=== PATIENT | male | born 1940 | race Caucasian/White ===

== ENCOUNTER → 2023-10-08 | Day surgery (SDC) | payer MEDICARE ==
[~2023-10-08] MED LIST: ACETAMINOPHEN 1000 MG/100 ML IV ONE; ACULAR5 ML IO; ALEVE220 M1 PO; ALPHAGAN P5 ML IO; ASPIRIN PO; ASPIRIN81 MG PO; ATORVASTATIN CA10 MG PO; BIOFLAVONOIDS PO; DEXAMETHASONE SO5 ML; DEXAMETHASONE SOD PHOS INJ 4 MG/ML SDV ONE; EPHEDRINE SULFATE INJ 50 MG/ML VIAL ONE; FENTANYL CITRATE/PF 100MCG/2 ML INJ ONE; FINASTERIDE5 MG PO; FUROSEMIDE40 MG PO; IOPAMIDOL 610MG/1ML 300 MG/ML VIAL IV ONE; LIDOCAINE HCL 2% LOCAL INJ 5 ML SDV VIAL INJ ONE; OMEGA 3-6-9 CO400 MG PO; ONDANSETRON HCL INJ 2MG/ML 2ML 2 MG/ML VIAL ONE; POTASSIUM CHLO20 ME1 PO; PREDNISOLONE ACE5 ML IO; PROPOFOL IV EMULSION 10 MG/ML 20 ML VIAL ONE; SEVOFLURANE INHAL SOLN 250 ML PEN BTL ONE; TIMOPTIC 0.5%1 EACH IO; UROXATRAL10 MG PO; VITAMIN C100 MG PO; [UNRECOGNIZED DRUG - OTHER]
[2023-10-08] MEDS: GENTAMICIN 80MG/NS 100 ML 200 ML IV ONE (09:03)
[2023-10-08] MEDS: LACTATED RINGER'S 1,000 ML ONE (09:03)
[2023-10-08 09:32] LABS: BASOPHILS # (AUTO) 0.1 (0.0-0.1); BASOPHILS % 0.7 % (0.0-1.0); EOSINOPHILS # (AUTO) 0.1 (0.0-0.4); EOSINOPHILS % 1.7 % (0.0-6.0); HEMATOCRIT 39.6 % (38.2-49.6); HEMOGLOBIN 12.8 g/dL (14.0-18.0); LYMPHOCYTES # (AUTO) 1.3 (1.0-3.2); LYMPHOCYTES % 14.8 % (18.0-39.1); MEAN CORPUSCULAR HEMOGLOBIN 32.7 pg (28-32); MEAN CORPUSCULAR HGB CONC 32.3 g/dL (31-35); MEAN CORPUSCULAR VOLUME 101.3 fL (81-99); MONOCYTES # (AUTO) 0.8 (0.2-0.8); MONOCYTES % 9.6 % (4.4-11.3); NEUTROPHILS # (AUTO) 6.2 (2.1-6.9); NEUTROPHILS % 72.8 % (38.7-80.0); PLATELET COUNT 220 x10e3/uL (140-360); RED BLOOD COUNT 3.91 x10e6/uL (4.3-5.7); RED CELL DISTRIBUTION WIDTH 13.8 % (11.7-14.4); WHITE BLOOD COUNT 8.46 x10e3/uL (4.8-10.8)
[2023-10-08 09:47] LABS: ANION GAP 14.8 mmol/L (8-16); CALCIUM 9.5 mg/dL (8.4-10.2); CREATININE, SERUM 0.82 mg/dL (0.72-1.25); POTASSIUM 3.8 mmol/L (3.5-5.1); URIC ACID 4.4 mg/dL (4.8-8.0)
[2023-10-08 13:45] VITALS: BP 130/80; PULSE 82; RESP 16; O2SAT 98
== END | disposition home or self-care (01) ==
LOC: OR 08:02
PROVIDERS: ATTEND Urology
DX: N13.2 Hydronephrosis with renal and ureteral calculous obstruction (principal); N40.0 Benign prostatic hyperplasia without lower urinary tract symptoms; N32.3 Diverticulum of bladder; Z98.890 Other specified postprocedural states; E78.5 Hyperlipidemia, unspecified; Z87.891 Personal history of nicotine dependence; Z86.711 Personal history of pulmonary embolism; Z88.1 Allergy status to other antibiotic agents; Z88.0 Allergy status to penicillin; Z88.2 Allergy status to sulfonamides; Z79.82 Long term (current) use of aspirin; Z79.899 Other long term (current) drug therapy
CPT/HCPCS: 36415; 50590; 52332; 74018; 80048; 83970; 84550; 85025; 87086; 87186; C1758; C1769; C2617; J0131; J1100; J1580; J2001; J2405; J2704; J3010; J7121; Q9967

== ENCOUNTER → 2023-10-29 | Day surgery (SDC) | payer MEDICARE ==
[~2023-10-29] MED LIST changes: +ACETAMINOPHEN 1000 MG/100 ML 100 ML IV ONE; -ACETAMINOPHEN 1000 MG/100 ML IV ONE; +SODIUM CHLORIDE 0.9% 250ML 250 ML ONE
[2023-10-29 08:07] LABS: BASOPHILS % 0.5 % (0.0-1.0); EOSINOPHILS # (AUTO) 0.2 (0.0-0.4); EOSINOPHILS % 2.3 % (0.0-6.0); HEMATOCRIT 39.4 % (38.2-49.6); HEMOGLOBIN 12.4 g/dL (14.0-18.0); LYMPHOCYTES % 15.4 % (18.0-39.1); MEAN CORPUSCULAR HEMOGLOBIN 31.9 pg (28-32); MEAN CORPUSCULAR HGB CONC 31.5 g/dL (31-35); MEAN CORPUSCULAR VOLUME 101.3 fL (81-99); MONOCYTES # (AUTO) 0.9 (0.2-0.8); MONOCYTES % 13.6 % (4.4-11.3); NEUTROPHILS # (AUTO) 4.4 (2.1-6.9); NEUTROPHILS % 67.9 % (38.7-80.0); PLATELET COUNT 254 x10e3/uL (140-360); RED BLOOD COUNT 3.89 x10e6/uL (4.3-5.7); WHITE BLOOD COUNT 6.54 x10e3/uL (4.8-10.8)
[2023-10-29] MEDS: LACTATED RINGER'S 1,000 ML ONE (08:22)
[2023-10-29] MEDS: LEVOFLOXACIN 500MG/D5W 100ML 100 ML IV ONE (08:23)
[2023-10-29 08:43] LABS: CREATININE, SERUM 0.89 mg/dL (0.72-1.25); URIC ACID 5.4 mg/dL (4.8-8.0)
[2023-10-29 09:25] LABS: ANION GAP 9.3 mmol/L (8-16); POTASSIUM 4.3 mmol/L (3.0-5.1)
[2023-10-29 09:26] LABS: CALCIUM 9.9 mg/dL (8.0-10.3)
[2023-10-29] MEDS: Vancomycin IV 1 GM VIAL ONE (11:40)
[2023-10-29] MEDS: FLUCONAZOLE 100 MG TAB PO ONE (12:05)
[2023-10-29 12:40] VITALS: BP 130/80; PULSE 69; RESP 16; O2SAT 97
== END | disposition home or self-care (01) ==
LOC: OR 07:07
PROVIDERS: ATTEND Urology
DX: N20.0 Calculus of kidney (principal); N32.0 Bladder-neck obstruction; N32.89 Other specified disorders of bladder; N40.1 Benign prostatic hyperplasia with lower urinary tract symptoms; N13.8 Other obstructive and reflux uropathy; E78.5 Hyperlipidemia, unspecified; Z88.1 Allergy status to other antibiotic agents; Z88.0 Allergy status to penicillin; Z88.2 Allergy status to sulfonamides; Z79.82 Long term (current) use of aspirin; Z79.899 Other long term (current) drug therapy; Z86.711 Personal history of pulmonary embolism
CPT/HCPCS: 36415; 50590; 52000; 74018; 80048; 84550; 85025; 87086; 87186; 93005; J0131; J1100; J1956; J2001; J2405; J2704; J3010; J3370; J7050; J7121

== ENCOUNTER 2024-01-05 07:06 | Inpatient (IN) | payer MEDICARE ==
[~2024-01-05] VITALS: Ht 182.9 cm; Wt 100.3 kg
[~2024-01-05 07:06] MED LIST changes: -ACETAMINOPHEN 1000 MG/100 ML 100 ML IV ONE; -DEXAMETHASONE SOD PHOS INJ 4 MG/ML SDV ONE; -EPHEDRINE SULFATE INJ 50 MG/ML VIAL ONE; -FENTANYL CITRATE/PF 100MCG/2 ML INJ ONE; -IOPAMIDOL 610MG/1ML 300 MG/ML VIAL IV ONE; -LIDOCAINE HCL 2% LOCAL INJ 5 ML SDV VIAL INJ ONE; -ONDANSETRON HCL INJ 2MG/ML 2ML 2 MG/ML VIAL ONE; -PROPOFOL IV EMULSION 10 MG/ML 20 ML VIAL ONE; -SEVOFLURANE INHAL SOLN 250 ML PEN BTL ONE; -SODIUM CHLORIDE 0.9% 250ML 250 ML ONE
[2024-01-05] MEDS: SODIUM CHLORIDE 0.9% 1000ML 1,000 ML ONE (07:52)
[2024-01-05] MEDS: GENTAMICIN 80MG/NS 100 ML 200 ML IV ONE (07:53)
[2024-01-05 08:21] LABS: BASOPHILS # (AUTO) 0.1 (0.0-0.1); BASOPHILS % 0.8 % (0.0-1.0); EOSINOPHILS # (AUTO) 0.1 (0.0-0.4); LYMPHOCYTES % 15.7 % (18.0-39.1); MEAN CORPUSCULAR HEMOGLOBIN 31.1 pg (28-32); MEAN CORPUSCULAR HGB CONC 30.6 g/dL (31-35); MEAN CORPUSCULAR VOLUME 101.7 fL (81-99); MONOCYTES # (AUTO) 0.7 (0.2-0.8); MONOCYTES % 11.6 % (4.4-11.3); NEUTROPHILS # (AUTO) 4.4 (2.1-6.9); NEUTROPHILS % 69.4 % (38.7-80.0); PLATELET COUNT 259 x10e3/uL (140-360); RED BLOOD COUNT 3.54 x10e6/uL (4.3-5.7); RED CELL DISTRIBUTION WIDTH 14.9 % (11.7-14.4); WHITE BLOOD COUNT 6.38 x10e3/uL (4.8-10.8)
[2024-01-05 08:41] LABS: ANION GAP 13.5 mmol/L (8-16); CALCIUM 9.7 mg/dL (8.4-10.2); CREATININE, SERUM 0.89 mg/dL (0.72-1.25); POTASSIUM 3.5 mmol/L (3.5-5.1); URIC ACID 5.6 mg/dL (4.8-8.0)
[2024-01-05] MEDS ORDERED: IOPAMIDOL 610MG/1ML 300 MG/ML VIAL IV ONE (12:01)
[2024-01-05] MEDS ORDERED: ONDANSETRON HCL INJ 2MG/ML 2ML 2 MG/ML VIAL IV PRN (15:30)
[2024-01-05] MEDS ORDERED: DIPHENHYDRAMINE HCL 25 MG CAP PO PRN (15:30)
[2024-01-05] MEDS ORDERED: ACETAMINOPHEN/CODEINE 300MG - 30MG TAB PO PRN (15:30)
[2024-01-05 15:52] LABS: BASOPHILS % 0.3 % (0.0-1.0); EOSINOPHILS # (AUTO) 0.1 (0.0-0.4); EOSINOPHILS % 1.8 % (0.0-6.0); HEMATOCRIT 36.8 % (38.2-49.6); HEMOGLOBIN 10.8 g/dL (14.0-18.0); LYMPHOCYTES # (AUTO) 1.3 (1.0-3.2); LYMPHOCYTES % 17.8 % (18.0-39.1); MEAN CORPUSCULAR HEMOGLOBIN 31.6 pg (28-32); MEAN CORPUSCULAR HGB CONC 29.3 g/dL (31-35); MONOCYTES # (AUTO) 0.4 (0.2-0.8); MONOCYTES % 5.2 % (4.4-11.3); NEUTROPHILS # (AUTO) 5.5 (2.1-6.9); NEUTROPHILS % 74.5 % (38.7-80.0); RED BLOOD COUNT 3.42 x10e6/uL (4.3-5.7); WHITE BLOOD COUNT 7.35 x10e3/uL (4.8-10.8)
[2024-01-05 16:00] LABS: MEAN CORPUSCULAR VOLUME 107.6 fL (81-99); PLATELET COUNT 220 x10e3/uL (140-360)
[2024-01-05 16:08] VITALS: BP 112/67; PULSE 68; RESP 17; TEMP 98.2; O2SAT 97
[2024-01-05 16:11] LABS: ANION GAP 13.9 mmol/L (8-16); CALCIUM 8.4 mg/dL (8.4-10.2); CREATININE, SERUM 0.86 mg/dL (0.72-1.25); POTASSIUM 3.9 mmol/L (3.5-5.1)
[2024-01-05 16:29] VITALS: BP 112/67; PULSE 68; RESP 17; TEMP 98.2; O2SAT 97
[2024-01-05] MEDS: SENNA-S TABLET PO SCH (18:15)
[2024-01-05] MEDS: LEVOFLOXACIN 250MG/D5W 50ML 50 ML IV SCH (18:15)
[2024-01-05] MEDS: SODIUM CHLORIDE 0.9% 1000ML 1,000 ML IV SCH (18:16)
[2024-01-05 19:30] VITALS: PULSE 95; RESP 16; O2SAT 98
[2024-01-05 20:00] VITALS: BP 94/49; PULSE 90; RESP 18; TEMP 97.9; O2SAT 100
[2024-01-05 20:15] VITALS: BP 94/49; PULSE 90; RESP 18; TEMP 97.9; O2SAT 100
[2024-01-05] MEDS: Vancomycin IV 500 MG in SODIUM CHLORIDE 0.9% 100 ML IV SCH (21:09)
[2024-01-06] VITALS (10 sets, daily range): BP systolic 90–107; BP diastolic 44–58; PULSE 72–119; RESP 16–20; TEMP 97.8–100.1; O2SAT 95–100
[2024-01-06] MEDS ORDERED: PROPOFOL IV EMULSION 10 MG/ML 20 ML VIAL ONE ×2 (01:23→05:06)
[2024-01-06] MEDS: ACETAMINOPHEN 1000 MG/100 ML IV PRN (02:44)
[2024-01-06] MEDS ORDERED: FENTANYL CITRATE/PF 100MCG/2 ML INJ ONE (03:30)
[2024-01-06] MEDS ORDERED: ONDANSETRON HCL INJ 2MG/ML 2ML 2 MG/ML VIAL ONE (04:27)
[2024-01-06] MEDS ORDERED: DEXAMETHASONE SOD PHOS INJ 4 MG/ML SDV ONE (04:27)
[2024-01-06] MEDS ORDERED: LIDOCAINE HCL 2% LOCAL INJ 5 ML SDV VIAL INJ ONE (04:27)
[2024-01-06] MEDS ORDERED: ACETAMINOPHEN 1000 MG/100 ML 100 ML IV ONE (05:00)
[2024-01-06 05:17] LABS: BASOPHILS % 0.1 % (0.0-1.0); EOSINOPHILS # (AUTO) 0.1 (0.0-0.4); EOSINOPHILS % 0.5 % (0.0-6.0); HEMATOCRIT 29.9 % (38.2-49.6); HEMOGLOBIN 9.3 g/dL (14.0-18.0); LYMPHOCYTES # (AUTO) 0.1 (1.0-3.2); LYMPHOCYTES % 0.6 % (18.0-39.1); MEAN CORPUSCULAR HEMOGLOBIN 31.7 pg (28-32); MEAN CORPUSCULAR HGB CONC 31.1 g/dL (31-35); MONOCYTES # (AUTO) 0.9 (0.2-0.8); NEUTROPHILS # (AUTO) 20.6 (2.1-6.9); NEUTROPHILS % 94.2 % (38.7-80.0); PLATELET COUNT 221 x10e3/uL (140-360); RED BLOOD COUNT 2.93 x10e6/uL (4.3-5.7); RED CELL DISTRIBUTION WIDTH 14.7 % (11.7-14.4); WHITE BLOOD COUNT 21.87 x10e3/uL (4.8-10.8)
[2024-01-06 05:42] LABS: ANION GAP 13.4 mmol/L (8-16); CALCIUM 8.1 mg/dL (8.4-10.2); CREATININE, SERUM 0.9 mg/dL (0.72-1.25)
[2024-01-06 05:51] LABS: POTASSIUM 3.4 mmol/L (3.5-5.1)
[2024-01-06] MEDS: PHENAZOPYRIDINE HCL 100 MG TAB PO PRN (06:28)
[2024-01-06 09:10] LABS: BAND NEUTROPHILS % (MANUAL) 3 %; MONOCYTES % (MANUAL) 6 % (3.4-9.0); NEUTROPHILS % (MANUAL) 91 % (40-74); PLATELET ESTIMATE ADEQUATE; PLATELET MORPHOLOGY COMMENT NORMAL; RBC MORPHOLOGY COMMENT NORMAL
[2024-01-06] MEDS: KETOROLAC TROMETHAMINE 0.5% OP SOLN 3 ML BTL OU SCH (11:26)
[2024-01-06] MEDS: BRIMONIDINE TARTRATE 0.15% OPTH DRPS 10ML BTL OP SCH (11:26)
[2024-01-06] MEDS: OPTH OP SCH (11:27)
[2024-01-06] MEDS: FINASTERIDE 5 MG TAB PO SCH (11:27)
[2024-01-06] MEDS: DEXAMETHASONE 0.1% OP SCH (11:27)
[2024-01-06] MEDS: TIMOLOL MALEATE 0.5% OPTH DRP 5 ML BTL OU SCH (11:27)
[2024-01-06] MEDS: ATORVASTATIN 10 MG TAB PO SCH (20:54)
[2024-01-07] VITALS (10 sets, daily range): BP systolic 108–129; BP diastolic 53–60; PULSE 82–94; RESP 18–20; TEMP 97.7–99; O2SAT 94–98
[2024-01-07 07:02] LABS: BASOPHILS % 0.1 % (0.0-1.0); EOSINOPHILS # (AUTO) 0.4 (0.0-0.4); EOSINOPHILS % 3.5 % (0.0-6.0); HEMATOCRIT 27.8 % (38.2-49.6); LYMPHOCYTES # (AUTO) 0.6 (1.0-3.2); LYMPHOCYTES % 4.7 % (18.0-39.1); MEAN CORPUSCULAR HEMOGLOBIN 31.9 pg (28-32); MEAN CORPUSCULAR HGB CONC 32.4 g/dL (31-35); MEAN CORPUSCULAR VOLUME 98.6 fL (81-99); MONOCYTES # (AUTO) 0.8 (0.2-0.8); MONOCYTES % 6.6 % (4.4-11.3); NEUTROPHILS # (AUTO) 9.9 (2.1-6.9); NEUTROPHILS % 84.5 % (38.7-80.0); PLATELET COUNT 190 x10e3/uL (140-360); RED BLOOD COUNT 2.82 x10e6/uL (4.3-5.7); RED CELL DISTRIBUTION WIDTH 14.9 % (11.7-14.4); WHITE BLOOD COUNT 11.73 x10e3/uL (4.8-10.8)
[2024-01-07 07:27] LABS: ANION GAP 10.3 mmol/L (8-16); CALCIUM 8.2 mg/dL (8.4-10.2); CREATININE, SERUM 0.77 mg/dL (0.72-1.25); POTASSIUM 3.3 mmol/L (3.5-5.1)
[2024-01-07] MEDS: POTASSIUM CHLORIDE 10MEQ EA PO ONE (08:43)
[2024-01-07] MEDS ORDERED: PHENAZOPYRIDINE HCL 100 MG TAB PO PRN (22:30)
[2024-01-08] VITALS (9 sets, daily range): BP systolic 109–136; BP diastolic 57–69; PULSE 77–98; RESP 15–20; TEMP 97.5–98.6; O2SAT 95–100
[2024-01-08 06:51] LABS: BASOPHILS % 0.2 % (0.0-1.0); EOSINOPHILS # (AUTO) 0.4 (0.0-0.4); EOSINOPHILS % 5.1 % (0.0-6.0); HEMATOCRIT 29.4 % (38.2-49.6); HEMOGLOBIN 8.9 g/dL (14.0-18.0); LYMPHOCYTES # (AUTO) 0.6 (1.0-3.2); LYMPHOCYTES % 7.4 % (18.0-39.1); MEAN CORPUSCULAR HEMOGLOBIN 31.2 pg (28-32); MEAN CORPUSCULAR HGB CONC 30.3 g/dL (31-35); MEAN CORPUSCULAR VOLUME 103.2 fL (81-99); MONOCYTES # (AUTO) 0.7 (0.2-0.8); MONOCYTES % 8.4 % (4.4-11.3); NEUTROPHILS # (AUTO) 6.8 (2.1-6.9); PLATELET COUNT 194 x10e3/uL (140-360); RED BLOOD COUNT 2.85 x10e6/uL (4.3-5.7)
[2024-01-08 07:20] LABS: ANION GAP 9.3 mmol/L (8-16); CALCIUM 8.4 mg/dL (8.4-10.2); CREATININE, SERUM 0.72 mg/dL (0.72-1.25)
[2024-01-08 07:36] LABS: POTASSIUM 3.3 mmol/L (3.5-5.1)
[2024-01-08] MEDS: POTASSIUM CHLORIDE 10MEQ EA PO SCH (11:08)
[2024-01-08] MEDS: Vancomycin IV 500 MG in SODIUM CHLORIDE 0.9% 100 ML IV SCH (22:50)
[2024-01-09] VITALS (9 sets, daily range): BP systolic 100–132; BP diastolic 51–72; PULSE 70–93; RESP 17–24; TEMP 98–98.5; O2SAT 87–100
[2024-01-09 06:56] LABS: BASOPHILS % 0.3 % (0.0-1.0); EOSINOPHILS # (AUTO) 0.7 (0.0-0.4); EOSINOPHILS % 8.5 % (0.0-6.0); HEMATOCRIT 28.7 % (38.2-49.6); HEMOGLOBIN 8.7 g/dL (14.0-18.0); LYMPHOCYTES # (AUTO) 0.9 (1.0-3.2); LYMPHOCYTES % 11.8 % (18.0-39.1); MEAN CORPUSCULAR HEMOGLOBIN 31.3 pg (28-32); MEAN CORPUSCULAR HGB CONC 30.3 g/dL (31-35); MEAN CORPUSCULAR VOLUME 103.2 fL (81-99); MONOCYTES # (AUTO) 0.7 (0.2-0.8); MONOCYTES % 9.6 % (4.4-11.3); NEUTROPHILS # (AUTO) 5.3 (2.1-6.9); NEUTROPHILS % 68.4 % (38.7-80.0); PLATELET COUNT 222 x10e3/uL (140-360); RED BLOOD COUNT 2.78 x10e6/uL (4.3-5.7); RED CELL DISTRIBUTION WIDTH 15.2 % (11.7-14.4); WHITE BLOOD COUNT 7.74 x10e3/uL (4.8-10.8)
[2024-01-09 07:19] LABS: ANION GAP 9.8 mmol/L (8-16); CALCIUM 8.7 mg/dL (8.4-10.2); CREATININE, SERUM 0.7 mg/dL (0.72-1.25); POTASSIUM 3.8 mmol/L (3.5-5.1)
[2024-01-09] MEDS: POTASSIUM CHLORIDE 20 MEQ TAB CR PO SCH (09:21)
[2024-01-10 04:00] VITALS: BP 126/77; PULSE 83; RESP 17; TEMP 98.2; O2SAT 97
[2024-01-10 05:49] LABS: ANION GAP 11.5 mmol/L (8-16); CALCIUM 8.7 mg/dL (8.4-10.2); CREATININE, SERUM 0.68 mg/dL (0.72-1.25); POTASSIUM 3.5 mmol/L (3.5-5.1)
[2024-01-10 07:30] VITALS: BP 121/63; PULSE 80; RESP 22; TEMP 98; O2SAT 99
[2024-01-10] MEDS ORDERED: BACTRIM DS TAB1 EACH PO (08:31)
[2024-01-10] MEDS ORDERED: PYRIDIUM100 MG PO (08:32)
[2024-01-10] MEDS ORDERED: KLOR-CON M2020 MEQ PO (08:33)
[2024-01-10 09:53] VITALS: BP 121/63; PULSE 80; RESP 22; TEMP 98; O2SAT 99
[2024-01-10 11:31] VITALS: BP 103/55; PULSE 83; RESP 22; TEMP 98; O2SAT 97
[2024-01-10] MEDS ORDERED: ONDANSETRON HCL 4 MG ORAL DISINTEGRATING TAB PO PRN (12:15)
== END 2024-01-10 12:35 | disposition home or self-care (01) | DRG 726 ==
LOC: OR 07:06 → PACU V 13:51 → MED/SURG 16:10
PROVIDERS: ADMIT Urology; ATTEND Urology
PROC: 0TP98DZ Removal of Intraluminal Device from Ureter, Via Natural or Artificial Opening Endoscopic (ICD-10-PCS; 2024-01-05)
PROC: 0TC78ZZ Extirpation of Matter from Left Ureter, Via Natural or Artificial Opening Endoscopic (ICD-10-PCS; 2024-01-05)
PROC: BT141ZZ Fluoroscopy of Kidneys, Ureters and Bladder using Low Osmolar Contrast (ICD-10-PCS; 2024-01-05)
PROC: 3E0333Z Introduction of Anti-inflammatory into Peripheral Vein, Percutaneous Approach (ICD-10-PCS; principal; 2024-01-05 12:09)
PROC: 0TP98DZ Removal of Intraluminal Device from Ureter, Via Natural or Artificial Opening Endoscopic (ICD-10-PCS; 2024-01-05 12:09)
DX: N40.1 Benign prostatic hyperplasia with lower urinary tract symptoms (principal); N13.8 Other obstructive and reflux uropathy; N39.0 Urinary tract infection, site not specified; N39.41 Urge incontinence; N20.0 Calculus of kidney; B95.62 Methicillin resistant Staphylococcus aureus infection as the cause of diseases classified elsewhere; E78.5 Hyperlipidemia, unspecified; I10 Essential (primary) hypertension; M19.90 Unspecified osteoarthritis, unspecified site; Z79.82 Long term (current) use of aspirin; Z87.440 Personal history of urinary (tract) infections; Z96.0 Presence of urogenital implants; Z88.0 Allergy status to penicillin; Z88.1 Allergy status to other antibiotic agents; Z88.2 Allergy status to sulfonamides; Z87.891 Personal history of nicotine dependence
CPT/HCPCS: 36415; 74018; 74420; 80048; 80202; 83735; 84550; 85025; 87040; 87086; 87186; 88300; 88305; 94799; C1766; J1100; J1580; J1956; J2003; J2405; J3370; J7030; J7050